=== PATIENT | female | born 1980 ===

== ENCOUNTER 2017-05-14 14:58 | Emergency (ER) | payer MEDICAID ==
[2017-05-14 15:53] VITALS: TEMP 99.8
--- NOTE | 2017-05-14 17:08 | US ---
EXAM DESCRIPTION: Venous,Lower Extremity LT: ULTRASOUND. CLINICAL HISTORY: left leg pain with elevated d-dimer COMPARISON: None Available. TECHNIQUE: Two -dimensional and doppler sonographic evaluation of the deep venous system of the left lower extremity. FINDINGS: Decreased color flow and venous waveforms in the proximal left peroneal vein. The vein demonstrates increased echogenicity and incompressibility on 2-D imaging with the transducer. Minimal tenderness. Doppler evaluation shows normal color flow and normal phasicity and augmentation of the left common femoral vein, deep femoral vein, femoral vein, popliteal vein, greater/lesser saphenous vein, distal peroneal and posterior tibial vein. The lower extremity deep veins with normal vascular flow also showed showed normal occlusion with transducer pressure. Two-dimensional survey showed no echogenic thrombus within these veins. IMPRESSION: 1. Duplex ultrasound evaluation of the left lower extremity deep venous system showing thrombus in the proximal left peroneal vein. 2. The distal left peroneal vein and remaining deep veins of the left lower extremity are unremarkable. Electronically signed by: Jean Adames MD 05/14/2017 5:07 PM UX MANAGER
[2017-05-14] MEDS ORDERED: ENOXAPARIN SODIUM 80 MG/0.8 ML SYG SUBCU ONE (17:33)
--- NOTE | 2017-05-14 17:36 | ED.PDOC ---
History of Present Illness - General Chief Complaint: General Stated Complaint: Left Lower ext pain Time Seen by Provider: 05/14/17 15:05 Source: patient - History of Present Illness Initial Comments: the patient is a 37-year-old female presenting to the emergency room secondary to pain in her left lower extremity that has been present off and on for at least the last 3 days. It is a little bit worse with movement. No fevers. No chest pain. No shortness of breath. Vital signs are reassuring. No history of any blood clots. No recent trauma. No recent injuries. No history of any bleeding or clotting disorders. She is 8 weeks . Severity: mild Improving Factors: nothing Worsening Factors: nothing Associated Symptoms: denies symptoms Allergies/Adverse Reactions: Allergies NO KNOWN ALLERGY Allergy (Verified 05/14/17 15:28) Home Medications: Ambulatory Orders Vit W/ Ferrous Fumara [] 1 tablet PO DAILY 05/14/17 Review of Systems - Review of Systems Constitutional: States: no symptoms reported EENTM: States: no symptoms reported Respiratory: States: no symptoms reported Cardiology: States: no symptoms reported Gastrointestinal/Abdominal: States: no symptoms reported Genitourinary: States: no symptoms reported Musculoskeletal: States: see HPI Skin: States: no symptoms reported Neurological: States: no symptoms reported Endocrine: States: no symptoms reported All other Systems: No Change from Baseline Past Medical History (General) - Patient Medical History Surgical History: other - Vaccination History Hx Influenza Vaccination: Yes - Social History Hx Tobacco Use: No Hx Alcohol Use: No - Female History Patient is a Female of Child Bearing Age (10 -59 yrs old): Yes Patient : Yes Hx Gestational Age: 6 Family Medical History - Family History Mother Family History: Unknown Physical Exam - Physical Exam General Appearance: Alert, Comfortable, No apparent distress Eye Exam: bilateral normal Ears, Nose, Throat: hearing grossly normal, normal ENT inspection, normal pharynx Neck: full range of motion, supple, normal inspection Respiratory: lungs clear, normal breath sounds, no respiratory distress, no accessory muscle use Cardiovascular/Chest: normal peripheral pulses, regular rate, rhythm, no edema Peripheral Pulses: radial,right: 2+, radial,left: 2+, dorsalis pedis,right: 2+, dorsalis pedis,left: 2+, posterior tibialis,right: 2+, posterior tibialis,left: 2+ Gastrointestinal/Abdominal: non tender, soft Rectal Exam: deferred Back Exam: normal inspection, no CVA tenderness Extremity: normal range of motion, no pedal edema, calf tenderness - mild. No palpable cords. Neurologic: senior lead project manager II-XII nml as tested, no motor/sensory deficits, alert, normal mood/affect, oriented x 3 Skin Exam: normal color Comments: Vital Signs - 24 hr 05/14/17 15:10 Temperature 99.8 F H Pulse Rate [ 104 H pulse ox] Respiratory 20 Rate Blood Pressure 128/85 [Left Arm] O2 Sat by Pulse 96 Oximetry Progress - Progress Progress: 05/14/17 17:38 the patient is a 37-year-old female at 8 weeks gestational age presenting with what appears to be a deep venous thrombosis of the distal left lower extremity. No evidence of clinically significant pulmonary embolus at this time. The patient is going to be a started on Lovenox 80 mg subcutaneously twice daily and she will be written for 1 week's worth of medications. She is planning on going back and seeing her land leasing information clerk tomorrow. Obviously if they desire they can do further workup and change medications to their liking. ER warnings were given for any evidence of any worsening. At this time she does not have any known history of any previous clotting problems. She may require further workup in the future. - Results/Orders Results/Orders: Laboratory Tests 05/14/17 05/14/17 05/14/17 15:35 15:35 15:35 WBC 13.8 H RBC 3.81 L Hgb 12.2 Hct 35.7 L MCV 93.6 MCH 32.0 H MCHC 34.1 RDW 12.7 Plt Count 289 MPV 7.3 L Absolute Neuts (auto) 10.50 H Absolute Lymphs (auto) 2.30 Absolute Monos (auto) 0.80 Absolute Eos (auto) 0.20 Absolute Basos (auto) 0.00 Neutrophils % 75.8 Lymphocytes % 16.7 L Monocytes % 5.8 Eosinophils % 1.4 Basophils % 0.3 D-Dimer, Quantitative 986 H* Sodium 134 L Potassium 3.4 L Chloride 101 Carbon Dioxide 26 Anion Gap 10.4 L BUN 10 Creatinine 0.74 BUN/Creatinine Ratio 13.5 Random Glucose 94 Serum Osmolality 267.0 L Calcium 9.1 Total Bilirubin 0.5 AST 18 ALT 16 Alkaline Phosphatase 33 L Serum Total Protein 7.1 Albumin 3.4 Globulin 3.7 H Albumin/Globulin Ratio 0.9 L Urine Color Urine Appearance Urine pH Ur Specific [place] Urine Protein Urine Glucose (UA) Urine Ketones Urine Blood Urine Nitrite Urine Bilirubin Urine Urobilinogen Ur Leukocyte Esterase Urine RBC Urine WBC Ur Epithelial Cells Amorphous Sediment Urine Bacteria Urine Mucus 05/14/17 16:15 WBC RBC Hgb Hct MCV MCH MCHC RDW Plt Count MPV Absolute Neuts (auto) Absolute Lymphs (auto) Absolute Monos (auto) Absolute Eos (auto) Absolute Basos (auto) Neutrophils % Lymphocytes % Monocytes % Eosinophils % Basophils % D-Dimer, Quantitative Sodium Potassium Chloride Carbon Dioxide Anion Gap BUN Creatinine BUN/Creatinine Ratio Random Glucose Serum Osmolality Calcium Total Bilirubin AST ALT Alkaline Phosphatase Serum Total Protein Albumin Globulin Albumin/Globulin Ratio Urine Color Yellow Urine Appearance Sl cloudy Urine pH 6.0 Ur Specific [place] 1.025 Urine Protein Negative Urine Glucose (UA) Negative Urine Ketones 15 H Urine Blood Small H Urine Nitrite Negative Urine Bilirubin Negative Urine Urobilinogen 0.2 Ur Leukocyte Esterase Negative Urine RBC 3-5 H Urine WBC 1-3 Ur Epithelial Cells 3-5 Amorphous Sediment 2+ Urine Bacteria 1+ Urine Mucus Large venous ultrasound of the left lower extremity shows clot in the left peroneal vein proximally. no evidence of a more extensive deep venous thrombosis. Departure - Departure Clinical Impression: DVT (deep vein thrombosis) in Disposition: Discharge to Home or Self Care Condition: Fair Departure Forms: ED Discharge - Pt. Copy, Patient Portal Self Enrollment Instructions: DI for Deep Vein Thrombosis Diet: regular diet Activity: increase activity as tolerated Home Medications: Ambulatory Orders Vit W/ Ferrous Fumara [] 1 tablet PO DAILY 05/14/17 Additional Instructions: the patient is a 37-year-old female at 8 weeks gestational age presenting with what appears to be a deep venous thrombosis of the distal left lower extremity. No evidence of clinically significant pulmonary embolus at this time. The patient is going to be a started on Lovenox 80 mg subcutaneously twice daily and she will be written for 1 week's worth of medications. She is planning on going back and seeing her land leasing information clerk tomorrow. Obviously if they desire they can do further workup and change medications to their liking. ER warnings were given for any evidence of any worsening. At this time she does not have any known history of any previous clotting problems. She may require further workup in the future. The patient should limit herself to low risk activities as far as trauma goes.
[2017-05-14 17:58] VITALS: BP 122/80; O2SAT 98
== END 2017-05-14 17:58 | disposition home or self-care (01) ==
LOC: ER 14:58
DX: O22.31 Deep phlebothrombosis in pregnancy, first trimester (principal); I82.4Z2 Acute embolism and thrombosis of unspecified deep veins of left distal lower extremity; Z3A.08 8 weeks gestation of pregnancy
CPT/HCPCS: 36415; 80053; 81001; 85025; 85379; 93971; J1650